=== PATIENT | male | born 1965 | race Caucasian/White ===

== ENCOUNTER 2017-11-09 06:16 | Emergency (ER) | payer OTHER ==
[~2017-11-09] VITALS: Ht 177.8 cm; Wt 68.0 kg
[2017-11-09] MEDS ORDERED: ACETAMINOPHEN500 MG PO (06:30)
[2017-11-09] MEDS ORDERED: CEPHALEXIN500 MG PO (06:38)
[2017-11-09] MEDS ORDERED: ACETAMINOPHEN-1 EAC1 PO (06:38)
== END 2017-11-09 06:44 | disposition home or self-care (01) ==
LOC: ED 06:16
DX: K08.89 Other specified disorders of teeth and supporting structures (principal); F17.200 Nicotine dependence, unspecified, uncomplicated; Z91.030 Bee allergy status
CPT/HCPCS: 99282